=== PATIENT | male | born 1980 | race Hispanic/Latino ===

== ENCOUNTER 2023-09-17 19:14 | Emergency (ER) | payer SELFPAY ==
[2023-09-17 19:27] VITALS: BP 139/73; PULSE 81; RESP 16; TEMP 37.3; O2SAT 99
--- NOTE | 2023-09-17 19:31 | ED.GENADULT ---
HPI - General Adult General Chief complaint: Skin/Abscess/Foreign Body Stated complaint: rash,itching from bee sting Time Seen by Provider: 09/17/23 19:31 Source: patient Mode of arrival: ambulatory Limitations: no limitations History of Present Illness HPI narrative: 42-year-old male patient presents to [facility] with complaints of a rash and itchiness. Patient states he has some stung by a wasps to the left wrist this morning and since then has been breaking out to a rash all over his body. Denies any chest pain, shortness of breath or trouble swallowing at this time care patient states he has had this before after being stung by wasps and B's and has had to go to the emergency department to get shots. Denies having an EpiPen. Related Data Allergies Allergy/AdvReac Type Severity Reaction Status Date / Time No Known Allergies Allergy Verified 09/17/23 19:55 Review of Systems Review of Systems: CONSTITUTIONAL: Denies fever, chills, or sweats. EYES: Denies visual changes, redness, or discharge. ENT: Denies rhinorrhea, congestion, sore throat, or otalgia. CARDIOVASCULAR: Denies chest pain, palpitations, or edema. RESPIRATORY: Denies cough or dyspnea. GASTROINTESTINAL: Denies abdominal pain, nausea, vomiting, or diarrhea. GENITOURINARY: Denies dysuria or hematuria. SKIN: Positive rash with itching. MUSCULOSKELETAL: Denies back pain, joint pain, or myalgia. NEUROLOGIC: Denies headache, numbness, or weakness. PSYCHIATRIC: Denies anxiety or depression. PMFSH Comments At the time of my signature I agree with nursing past medical history, surgical, social, and family history. There is no relevant family history pertinent to the presenting complaint. Exam Narrative: GENERAL: Well-appearing, well-nourished, and in no acute distress. HEAD: Normocephalic, atraumatic. EYES: PERRLA and EOMI. ENT: Nares clear, no rhinorrhea or epistaxis. Mucous membranes moist. Tonsillar enlargement was about 2+ but airway was patent. NECK: Supple. No lymphadenopathy. No stridor noted on auscultation CHEST: Clear to auscultation. No respiratory distress. HEART: Regular rate and rhythm. No murmur heard. Normal peripheral pulses. ABDOMEN: Soft, nontender, nondistended, normal active bowel sounds. EXTREMITIES: Normal range of motion. No edema. SKIN: Warm, dry, patient has hive-like rash with various sizes in welts all over bilateral upper extremities, of the chest and the back and some rash noted to the lower extremities. NEURO: No focal deficits. Alert and oriented x3. Course Course Level of Care: Express Care Visit Vital Signs Vital signs: Vital Signs Temperature 37.3 C 09/17/23 19:27 Pulse Rate 81 09/17/23 19:27 Respiratory Rate 16 09/17/23 19:27 Blood Pressure 139/73 09/17/23 19:27 Pulse Oximetry 99 09/17/23 19:27 Oxygen Delivery Room Air 09/17/23 19:27 Temperature 37.3 C 09/17/23 19:27 Pulse Rate 81 09/17/23 19:27 Respiratory Rate 16 09/17/23 19:27 Blood Pressure 139/73 09/17/23 19:27 Pulse Oximetry 99 09/17/23 19:27 Oxygen Delivery Room Air 09/17/23 19:27 Vital signs reviewed. Medical Decision Making MDM Narrative Medical decision making narrative: Discussed with patient we will give him a dose of steroids, Pepcid and Benadryl tonight since the pharmacies are closed and sending his prescription in I highly encourage that he pick it up and finish the steroids. We have also sent him in an EpiPen in case this happens again. Discussed with patient if he develops chest pain, shortness of breath or trouble swallowing that he needs to go the emergency department right away. Patient verbalized understanding denies any other questions or concerns at this time. Differential Diagnosis Differential Diagnosis: Differential diagnosis: Contact dermatitis, poison lisa, poison sumac, psoriasis, eczema, allergic reaction, drug reaction, scabies, tinea syphilis, lung disease, viral exanthema, pityri
[2023-09-17] MEDS: diphenhydrAMINE HCl CAP 25 MG CAPSULE PO (20:01)
[2023-09-17] MEDS: FAMOTIDINE 20 MG TABLET PO (20:02)
[2023-09-17] MEDS: predniSONE 20 MG TABLET 60 MG PO (20:03)
== END 2023-09-17 20:11 | disposition home or self-care (01) ==
PROVIDERS: Emergency Provider Nurse Practitioner Family
DX: T63.441A Toxic effect of venom of bees, accidental (unintentional), initial encounter (principal)
CPT/HCPCS: 99203; A9270; G0463; J7512